=== PATIENT | female | born 1945 | race American Indian/Alaskan Native ===

== ENCOUNTER 2017-04-06 16:39 | Outpatient (CLI) | payer OTHER ==
--- NOTE | 2017-04-06 18:12 | XRay Report ---
FINAL REPORT EXAM: XR ELBOW 3+V LT HISTORY: FELL ELBOW PAIN TECHNIQUE: 3 views of the left elbow PRIORS: None. FINDINGS: Nonspecific smoothly marginated ossicle in the soft tissues adjacent to the proximal ulna. This finding appears chronic. Slight degenerative change at the ulnotrochlear joint. No evidence of joint effusion. No evidence of acute fracture or dislocation. IMPRESSION: No acute skeletal pathology
--- NOTE | 2017-04-06 18:16 | XRay Report ---
FINAL REPORT EXAM: XR KNEE BILAT 3V HISTORY: FELL KNEE PAIN TECHNIQUE: 3 views of the left knee 3 views of the right knee PRIORS: None. FINDINGS: No acute fracture, dislocation, or evidence of joint effusion. Anterior patella degenerative enthesopathy is small bilateral. Minimal degenerative articular surface irregularity in the right knee and left knee medial femoral condyle. No significant joint space narrowing. IMPRESSION: No acute skeletal pathology in the right knee and left knee
--- NOTE | 2017-04-06 18:26 | XRay Report ---
FINAL REPORT EXAM: XR CLAVICLE LT HISTORY: FALL CLAVICLE PAIN TECHNIQUE: 2 views of the left clavicle PRIORS: None. FINDINGS: Slight degenerative arthrosis includes articular surface irregularity and slight juxta-articular hypertrophy at the undersurface of the AC joint. There is no significant abnormality at the glenohumeral joint. No fracture, dislocation, or misalignment is evident. Intact appearing left clavicle. IMPRESSION: No acute skeletal pathology
== END 2017-04-06 16:40 | disposition home or self-care (01) ==
LOC: XRAY 16:39
PROVIDERS: ATTEND Internal Medicine
DX: M19.012 Primary osteoarthritis, left shoulder (principal); M19.022 Primary osteoarthritis, left elbow; M76.892 Other specified enthesopathies of left lower limb, excluding foot; M76.891 Other specified enthesopathies of right lower limb, excluding foot; W01.0XXA Fall on same level from slipping, tripping and stumbling without subsequent striking against object, initial encounter; X58.XXXA Exposure to other specified factors, initial encounter; Y93.89 Activity, other specified; Y92.89 Other specified places as the place of occurrence of the external cause; Y99.8 Other external cause status